=== PATIENT | male | born 1950 | race Caucasian/White ===

== ENCOUNTER 2018-02-12 22:58 | Emergency (ER) | payer OTHER ==
[~2018-02-12] VITALS: Ht 177.8 cm; Wt 94.3 kg
[2018-02-12 23:07] VITALS: BP 154/78
[2018-02-12] MEDS ORDERED: AMLODIPINE BESY10 MG PO (23:09)
[2018-02-12] MEDS ORDERED: COZAAR 25 MG TA25 M1 PO (23:09)
== END 2018-02-12 23:15 | disposition home or self-care (01) ==
LOC: M.ERS 22:58
DX: Z71.1 Person with feared health complaint in whom no diagnosis is made (principal)

== ENCOUNTER 2018-07-28 15:21 | Emergency (ER) | payer OTHER ==
[~2018-07-28] VITALS: Ht 177.8 cm; Wt 93.9 kg
[~2018-07-28 15:21] MED LIST: AMLODIPINE BESY10 MG PO; COZAAR 25 MG TA25 M1 PO
[2018-07-28] MEDS ORDERED: LIPITOR10 MG PO (15:32)
[2018-07-28] MEDS ORDERED: KEFLEX500 M1 PO (15:34)
[2018-07-28] MEDS ORDERED: ACETAMINOPHEN-1 EAC1 PO (16:37)
[2018-07-28 16:51] VITALS: BP 107/72
== END 2018-07-28 16:51 | disposition home or self-care (01) ==
LOC: M.ERS 15:21
DX: S61.012A Laceration without foreign body of left thumb without damage to nail, initial encounter (principal); S61.213A Laceration without foreign body of left middle finger without damage to nail, initial encounter; I10 Essential (primary) hypertension; W26.8XXA Contact with other sharp object(s), not elsewhere classified, initial encounter; Y93.89 Activity, other specified; Y92.89 Other specified places as the place of occurrence of the external cause; Y99.8 Other external cause status